=== PATIENT | female | born 1985 | race Two or more races ===

== ENCOUNTER 2020-03-19 13:30 | Emergency (ER) | payer BC, OTHER ==
[~2020-03-19] VITALS: Ht 185.4 cm; Wt 69.9 kg
[2020-03-19 14:08] VITALS: BP 107/73
[2020-03-19 14:30] LABS: Urine WBC None Seen /hpf (0 - 5)
[2020-03-19 15:10] LABS: Basophils # (auto) 0 10 ^3/uL (0-0.2); Basophils % (auto) 0.3 % (0.0-2.0); Eosinophils # (auto) 0.1 10 ^3/uL (0-0.8); Hemoglobin 11.3 g/dL (12.2-16.2); Mean Corpuscular Hemoglobin 23.8 pg (28.0-32.0); Mean Corpuscular Hgb Conc. 31.7 g/dL (32.0-36.0); Monocytes # (auto) 0.5 10 ^3/uL (0-1.3); Red Cell Distribution Width 18.2 % (11.8-14.3)
[2020-03-19 15:12] LABS: Hematocrit 35.7 % (36.0-46.0); Lymphocytes # (auto) 1.3 10 ^3/uL (0.4-5.4); Lymphocytes % (auto) 23.1 % (10.0-50.0); Monocytes % (auto) 8.4 % (0.0-12.0); Neutrophils # (auto) 3.6 10 ^3/uL (1.6-8.6); Neutrophils % (auto) 66.2 % (37.0-80.0); Platelet Count (auto) 335 10^3/uL (140-450); Red Blood Cells 4.75 10^6/uL (4.0-5.20); White Blood Cell 5.5 10^3/uL (4.4-10.8)
[2020-03-19 15:26] LABS: Urine Bacteria NONE SEEN /hpf (None Seen); Urine Blood Negative /uL (Negative); Urine Mucus MANY (None Seen); Urine Specific Gravity 1.033 (1.001-1.035)
[2020-03-19 15:27] LABS: Albumin 3.7 g/dL (3.4-5.0); Calcium 9.1 mg/dL (8.5-10.1)
[2020-03-19 15:31] LABS: Bilirubin, Total 0.6 mg/dL (0.2-1.0); Total Protein 8.2 g/dL (6.4-8.2)
[2020-03-19] MEDS ORDERED: ACETAMINOPHEN 500 MG TAB PO ONE (16:00)
== END 2020-03-19 16:21 | disposition home or self-care (01) ==
LOC: ER 13:30
DX: S01.531A Puncture wound without foreign body of lip, initial encounter (principal); R55 Syncope and collapse; E05.90 Thyrotoxicosis, unspecified without thyrotoxic crisis or storm
CPT/HCPCS: 36415; 70450; 80053; 81001; 81025; 84443; 85025

== ENCOUNTER 2020-03-23 14:20 | Emergency (ER) | payer BC ==
[~2020-03-23] VITALS: Ht 182.9 cm; Wt 69.9 kg
[2020-03-23 14:30] VITALS: BP 115/76
== END 2020-03-23 15:27 | disposition home or self-care (01) ==
LOC: ER 14:20
DX: S92.412A Displaced fracture of proximal phalanx of left great toe, initial encounter for closed fracture (principal); Z88.8 Allergy status to other drugs, medicaments and biological substances; W20.8XXA Other cause of strike by thrown, projected or falling object, initial encounter; Y93.89 Activity, other specified; Y92.89 Other specified places as the place of occurrence of the external cause; Y99.8 Other external cause status
CPT/HCPCS: 73630

== ENCOUNTER 2020-10-17 13:56 | Emergency (ER) | payer BC, OTHER ==
[~2020-10-17] VITALS: Ht 182.9 cm; Wt 68.0 kg
[2020-10-17 14:01] VITALS: BP 122/78
[2020-10-17] MEDS ORDERED: ACETAMINOPHEN 500 MG TAB PO ONE (16:00)
== END 2020-10-17 17:54 | disposition home or self-care (01) ==
LOC: ER 13:56
DX: S93.401A Sprain of unspecified ligament of right ankle, initial encounter (principal); S76.011A Strain of muscle, fascia and tendon of right hip, initial encounter; S90.31XA Contusion of right foot, initial encounter; V43.52XA Car driver injured in collision with other type car in traffic accident, initial encounter; Y93.89 Activity, other specified; Y92.89 Other specified places as the place of occurrence of the external cause; Y99.8 Other external cause status
CPT/HCPCS: 73502; 73610; 73630